=== PATIENT | male | born 1970 | race Caucasian/White ===

== ENCOUNTER 2021-03-29 11:04 | Outpatient (CLI) | payer OTHER, SELFPAY ==
--- NOTE | ~2021-03-29 | US_ITS ---
EXAMINATION: US thyroid EXAM DATE: 03/29/2021 11:34 INDICATION: Goiter. TECHNIQUE: Multiple grayscale and Doppler images of the thyroid were obtained (by a technologist who performed the scan) and subsequently reviewed. Individual nodules and recommendations may be reporte d in accordance with TI-RADS system as designated by the 2017 ACR White Paper TI-RADS committee. The re is no prior study for comparison. FINDINGS: The right there are lobe measures 5.5 x 2.5 x 1.6 cm, the left measuring 5.6 x 2.2 x 1.8 cm. Mildly d iffusely heterogeneous thyroid echogenicity with expected amount of vascularity. There are several thyroid nodules identified, largest in the right thyroid lobe midpole measuring 1.2 x 1.6 x 1.4 cm, solid (2 points), hypoechoic (2 points), taller than wide (3 points), smooth well de fined margin, without echogenic foci, category TR4 for this nodule. The others are subcentimeter. IMPRESSION: Multinodular goiter; Ultrasound-guided biopsy recommended for largest right thyroid lobe nodule. Reviewed, dictated and finalized at location B. IMPRESSION: Multinodular goiter; Ultrasound-guided biopsy recommended for large st right thyroid lobe nodule.
== END 2021-03-29 11:05 | disposition home or self-care (01) ==
LOC: ANHIMG 11:10
PROVIDERS: PCP Nurse Practitioner; Visit Provider Internal Medicine Endocrinology, Diabetes & Metabolism
DX: E04.9 Nontoxic goiter, unspecified (principal); R11.2 Nausea with vomiting, unspecified
CPT/HCPCS: 76536

== ENCOUNTER 2021-05-11 09:51 | Outpatient (CLI) | payer OTHER, SELFPAY ==
--- NOTE | ~2021-05-11 | NM_ITS ---
EXAM: NM gastric emptying study DATE: 05/11/2021 14:34 INDICATION: Nausea and vomiting TECHNIQUE: A gastric emptying study was performed using the methodology of Glory TANG, et al. J Nucl Med 2007; 48:568-572. The patient was given a meal consisting of 2 scrambled eggs labeled with 0.985 mCi Tc-99m sulfur colloid, 2 slices of toast, two packages of jam, and approximately 120 mL of water . Simultaneous anterior and posterior 1-min images of the abdomen were obtained with the patient supi ne at multiple time points over a total period of 4 hours. The geometric mean of anterior and posteri or views was determined, and the percentage retention was calculated for each time point. COMPARISON: None. FINDINGS: Gastric retention of the radiotracer-labeled meal was 49%, 23%, and 3% at the 1-hour, 2-hour, and 4-h our time points, respectively. With this technique, apparent rapid gastric emptying is suggested by < 30% gastric retention at 1 hour. Delayed gastric emptying is defined by gastric retention of >90% at 1 hour, >60% retention at 2 hours, or >10% retention at 4 hours. IMPRESSION: 1. Normal gastric emptying. Reviewed, dictated and finalized at location A. IMPRESSION: 1. Normal gastric emptying.
== END 2021-05-11 09:52 | disposition home or self-care (01) ==
PROVIDERS: PCP Nurse Practitioner; Visit Provider Internal Medicine Endocrinology, Diabetes & Metabolism
DX: R11.2 Nausea with vomiting, unspecified (principal)
CPT/HCPCS: 78264; A9541

== ENCOUNTER 2021-07-19 09:25 | Outpatient (CLI) | payer OTHER, SELFPAY ==
--- NOTE | ~2021-07-19 | US_ITS ---
EXAMINATION: US FNA w image guidance DATE: 07/19/2021 10:44 INDICATION: Right thyroid nodule. TECHNIQUE: The procedure and its benefits and risks were discussed with the patient. Risks specifically discusse d included bleeding. The patient verbalized understanding of the risks and agreed to proceed. The nec k was prepped and draped in the usual sterile manner. 1% lidocaine was used for local anesthesia. 5 passes were made with a 25G needle into the lesion under ultrasound guidance. There were no immedia te complications. The patient understood to call the ordering physician for results after a week and a half and verbalized that understanding. FINDINGS: Grayscale ultrasound images demonstrate needles advanced into a 1.7 cm nodule in right thyroid lobe f or biopsy. IMPRESSION: 1. Ultrasound-guided fine needle aspiration of a right thyroid nodule. Reviewed, dictated and finalized at location A.
== END 2021-07-19 09:26 | disposition home or self-care (01) ==
LOC: ANHIMG 09:27
PROVIDERS: PCP Nurse Practitioner; Visit Provider Internal Medicine Endocrinology, Diabetes & Metabolism
DX: E04.1 Nontoxic single thyroid nodule (principal)
CPT/HCPCS: 10005; 88173; 88305

== ENCOUNTER 2022-01-31 15:09 | Outpatient (CLI) | payer OTHER, SELFPAY ==
--- NOTE | ~2022-01-31 | US_ITS ---
EXAMINATION: US thyroid DATE: 01/31/2022 16:05 INDICATION: Thyroid nodule TECHNIQUE: Multiple ultrasound images of the thyroid were obtained. COMPARISON: 03/29/2021 FINDINGS: The right thyroid lobe measures 5.1 x 2.3 x 1.8 cm. The left thyroid lobe measures 4.9 x 2.1 x 1.4 c m. No significant interval change in a 1.6 cm taller than wide hypoechoic solid TI-RADS 4 right thyr oid nodule with biopsy on 07/19/2021 demonstrating pathology consistent with benign follicular nodule with features of colloid cyst. Also without significant interval change is a 5 mm solid hypoechoic nodules in the left thyroid lobe IMPRESSION: 1. Stable appearance of a multinodular goiter. Reviewed, dictated and finalized at location A. [employer]
== END 2022-01-31 15:10 | disposition home or self-care (01) ==
LOC: ANHIMG 15:11
PROVIDERS: PCP Nurse Practitioner; Visit Provider Internal Medicine Endocrinology, Diabetes & Metabolism
DX: E04.2 Nontoxic multinodular goiter (principal)
CPT/HCPCS: 76536

== ENCOUNTER 2022-09-03 14:50 | Observation (INO) | payer OTHER, SELFPAY ==
--- NOTE | ~2022-09-03 | CT_ITS ---
EXAMINATION: CT abdomen pelvis w con DATE: 09/03/2022 17:39 INDICATION: abd pain TECHNIQUE: Computed tomography (CT) of the abdomen and pelvis was performed with 100 mL Omnipaque-350 intravenous contrast. Automated exposure control and iterative reconstruction technique were employe d. The dose-length product was 1315.30 mGy-cm. COMPARISON: None. FINDINGS: Lower thorax: Coronary artery calcification and possible stents. Liver: Enlarged. Diffuse fatty infiltration. Biliary/Gallbladder: Gallbladder is absent. No bile duct dilation. Pancreas: No mass or duct dilation. Spleen: Normal. Adrenals:No mass. Kidneys: No mass, stone, or hydronephrosis. GI tract: No small or large bowel dilation. Normal appendix. Diverticulosis without diverticulitis. Mesentery/Peritoneum: No ascites, mass, or free air. Retroperitoneum: No mass. Pelvis: Bladder wall thickening, otherwise the pelvic organs are within normal limits. Soft Tissues: Bilateral fat-containing inguinal hernias, with minimal herniation of the right side of the urinary bladder at the entrance of the right inguinal hernia. Small fat-containing umbilical her ileana. Dermal thickening with subcutaneous fat stranding involving the lower abdomen and extending over the bilateral hips and buttocks. Bones: No acute osseous finding. IMPRESSION: Hepatomegaly. Steatosis. Bladder wall thickening, possibly due to bladder outlet compromise, noting t hat cystitis would appear similar. Dermal thickening with subcutaneous edema/inflammation of the lowe r abdomen and pelvis of uncertain significance, correlate with physical exam. Reviewed, dictated and finalized at location K. IMPRESSION: Hepatomegaly. Steatosis. Bladder wall thickening, possibly due to bladder outle t compromise, noting that cystitis would appear similar. Dermal thickening with subcutaneous edema/inflammation of the lower abdomen and pelvis of uncertain s ignificance, correlate with physical exam.
[2022-09-03 15:11] VITALS: BP 114/65; PULSE 104; RESP 15; TEMP 36.7; O2SAT 98
[2022-09-03 15:33] LABS: Basophils Percent Auto 0.3 % (0.2-1.2); Eosinophils Absolute Auto 0.6 K/mm3 (0-0.3); Eosinophils Percent Auto 3.6 % (0-4.4); Hematocrit 49.4 % (42.0-52.0); Hemoglobin 16.1 g/dL (14.0-18.0); Immature Granulocyte Absolute 0.11 K/mm3 (0.00-0.031); Immature Granulocyte Percent A 0.7 % (0-0.5); Lymphocytes Absolute Auto 3.69 K/mm3 (0.9-3.2); Lymphocytes Percent Auto 23.5 % (18.3-44.2); Mean Corpuscular HGB Conc 32.6 g/dl (32-36); Mean Corpuscular Hemoglobin 29.2 pg (26-34); Mean Corpuscular Volume 89.7 fl (80-100); Mean Platelet Volume 9.3 fl (7.4-10.4); Monocytes Absolute Auto 0.9 K/mm3 (0.1-0.6); Monocytes Percent Auto 5.4 % (2.6-8.5); Neutrophils Absolute Auto 10.5 K/mm3 (1.3-6.7); Neutrophils Percent Auto 66.5 % (45.5-73.1); Platelet Count Result 325 k/mm3 (150-375); Red Blood Count 5.51 M/mm3 (4.6-6.20); Red Cell Distribution Width 14.6 % (11.5-14.5); White Blood Count 15.7 K/mm3 (4.5-10.0)
[2022-09-03 15:41] LABS: Add Urine Microscopic? YES; Appearance Urine Clear (Clear); Bilirubin Urine Negative (Negative); Blood Urine Negative (Negative); Color Urine Yellow (Yellow); Glucose Urine UA 3+ mg/dL (Negative); Ketones Urine Negative (Negative); Leukocyte Esterase Ur Negative LEU/UL (Negative); Mucus Urine Rare /lpf; Nitrate Urine Negative (Negative); Protein Urine Negative (Negative); RBC Urine 0-2 /hpf (0-2); Specific Grav Ur 1.029 (1.001-1.035); Squamous Epithelial Cell Urine Rare /hpf (Few); Urobilinogen Urine Negative mg/dL (<2.0); WBC Urine 0-3 /hpf
[2022-09-03 15:43] LABS: Alanine Aminotransferase 36 U/L (6-50); Albumin Level 3.7 g/dL (3.5-5.1); Alkaline Phosphatase 50 U/L (38-126); Anion Gap 12 mmol/L (8-16); Aspartate Amino Transferase 24 U/L (17-59); Bilirubin,Total 0.4 mg/dL (0.2-1.3); Blood Urea Nitrogen 33 mg/dL (9-20); Calcium 8.6 mg/dL (8.4-10.2); Carbon Dioxide 12 mmol/L (22-30); Chloride 108 mmol/L (98-107); Estimated CRCL calculation 55 ml/min; Estimated Glomerular Filt Rate 43; Glucose 309 mg/dL (65-110); Lipase 146 U/L (23-300); Potassium 4.8 mmol/L (3.4-5.0); Sodium 132 mmol/L (137-145)
[2022-09-03] MEDS: SODIUM CHLORIDE 0.9% IV 1,000 ML 999 ML IV CONT ×2 (17:02→17:03)
--- NOTE | 2022-09-03 18:10 | ED.GENADULT ---
HPI - General Adult General Chief complaint: Nausea/Vomiting/Diarrhea Stated complaint: diarrhea x 7 days Time Seen by Provider: 09/03/22 16:49 Source: RN notes reviewed History of Present Illness HPI narrative: Patient presents emergency room from home for diarrhea. Patient states for the past week he has been having numerous episodes of diarrhea and states that has been associated with nausea and vomiting but states that he only vomits rarely and is more nauseous all the time he denies any fevers or chills states he has had some abdominal pain is described as cramping in nature and diffuse he denies having any chest pain or shortness of breath. States he was started on Lyrica recently stopped taking as he thought this may be a side effect of his Lyrica Related Data Allergies Allergy/AdvReac Type Severity Reaction Status Date / Time No Known Allergies Allergy Verified 02/22/15 08:49 Review of Systems Review of Systems: Gen.: Denies fevers or chills ENT: Denies congestion Respiratory: Denies shortness of breath or cough CV: Denies chest pain or palpitations GI: See HPI Musculoskeletal: Denies back pain or muscle pain Neuro: Denies numbness, tingling, weakness or focal weakness Skin: Denies rash Except as documented, all other systems reviewed and negative [facility] Past Medical History Medical History (Updated 09/03/22 @ 18:48 by Adrian Hawthorne DO) Diabetes type 2, uncontrolled Family History Family History (Updated 03/19/16 @ 10:17 by DOCTOR UNKNOWN) Other Diabetes mellitus Family history of arthritis Family history of malignant neoplasm of brain Social History Social History Smoking status: Never smoker Alcohol intake: current Exam Narrative: APPEARANCE: No acute distress, nontoxic, resting in bed HEENT: Normocephalic, atraumatic, OMM RESPIRATORY: No respiratory distress, clear to auscultation bilaterally with no rhonchi wheezing or rales CARDIOVASCULAR: RRR s murmur ABDOMINAL: Soft nondistended diffusely tender to palpation no rebound or guarding MUSCULOSKELETAl: Moves all extremities. No clubbing, cyanosis or edema. NEURO: Awake and alert. Following commands, speech normal, no focal deficits SKIN:: Warm, dry. Normal Color PSYCHIATRIC: Normal affect/mood Course Course Emergency Course: Following CT scan discussed with patient patient states that he does give himself injections in his abdomen there is no signs of erythema or infection Discussed with JIE Zhu for Dr. Neely agrees with admission with continued hydration Discussed with patient and family results of workup and diagnosis. Discussed need for admission. Patient and family understand and agree to current treatment plan Vital Signs Vital signs: Vital Signs Temperature 98.1 F 09/03/22 15:11 Pulse Rate 104 H 09/03/22 15:11 Respiratory Rate 15 09/03/22 15:11 Blood Pressure 114/65 09/03/22 15:11 Pulse Oximetry 98 09/03/22 15:11 Oxygen Delivery Room Air 09/03/22 15:11 Temperature 98.1 F 09/03/22 15:11 Pulse Rate 104 H 09/03/22 15:11 Respiratory Rate 15 09/03/22 15:11 Blood Pressure 114/65 09/03/22 15:11 Pulse Oximetry 98 09/03/22 15:11 Oxygen Delivery Room Air 09/03/22 15:11 Medical Decision Making Vital Signs Vital Signs: Vital Signs Temperature 98.1 F 09/03/22 15:11 Pulse Rate 104 H 09/03/22 15:11 Respiratory Rate 15 09/03/22 15:11 Blood Pressure 114/65 09/03/22 15:11 Pulse Oximetry 98 09/03/22 15:11 Oxygen Delivery Room Air 09/03/22 15:11 Temperature 98.1 F 09/03/22 15:11 Pulse Rate 104 H 09/03/22 15:11 Respiratory Rate 15 09/03/22 15:11 Blood Pressure 114/65 09/03/22 15:11 Pulse Oximetry 98 09/03/22 15:11 Oxygen Delivery Room Air 09/03/22 15:11 Lab Data Result diagrams: 09/03/22 15:26 09/03/22 15:26 Labs: Lab Results 09/03/2208/25
[2022-09-03 18:52] LABS: Lactic Acid Reflex 1.5 mmol/L (0.7-2.0)
[2022-09-03 18:56] LABS: Beta-Hydroxybutyrate/Acetoacetate 0.11 mmol/L (0.02-0.27)
[2022-09-03 19:08] LABS: Anion Gap 12 mmol/L (8-16); Blood Urea Nitrogen 32 mg/dL (9-20); Calcium 7.6 mg/dL (8.4-10.2); Carbon Dioxide 15 mmol/L (22-30); Chloride 108 mmol/L (98-107); Estimated CRCL calculation 55 ml/min; Estimated Glomerular Filt Rate 43; Glucose 205 mg/dL (65-110); Potassium 4.3 mmol/L (3.4-5.0); Sodium 135 mmol/L (137-145)
[2022-09-03 19:48] VITALS: BP 139/76; PULSE 99; RESP 16; O2SAT 98
[2022-09-03 20:51] VITALS: BMI 36.9
--- NOTE | 2022-09-03 20:57 | ADMGEN ---
This patient, Adrian Castillo, was admitted to [facility] Surg Room 313-01. Patient/family oriented to hospital policies and general routines including ID bracelet, bed and alarms, visiting hours, pain management, procedures, bathroom and other care routines, personal items, smoking policy, room service/diet, and visiting hours. Information on how to activate the Rapid Response Team has been discussed. Patient/Family are encouraged to report perceived risks to care and to ask questions if they do not understand what they are told or what they should do.
--- NOTE | 2022-09-03 21:18 | PM.IMHP ---
H&P: HPI History of Present Illness Date/Time: 09/03/22 21:18 Chief Complaint: Diarrhea Narrative: This is a 51-year-old male with past medical history significant for type diabetes mellitus, insulin dependent, peripheral diabetic neuropathy, patient is uses skin as an aid for ambulation, restless leg syndrome, dyslipidemia, generalized anxiety disorder, chronic diarrhea. patient presents to the emergency room due to diarrhea for a week patient having any were in between 6-24 bowel movements a day of liquid stool noted that the number of episodes have become less. patient denies any fevers, rigors, chills, cough, sputum production, shortness of breath, hematemesis, phlegm or blood in the stool, no abdominal pain, no lightheadedness, no palpitations, no syncope or near syncope.He had been in to see his primary care physician who ordered some lab work and asked him to present to the emergency room for further evaluation. Preliminary workup was significant for [place] WBC 63041, chemistry panel sodium 132, creatinine 1.7. A CT of abdomen and pelvis was reported as: IMPRESSION: Hepatomegaly. Steatosis. Bladder wall thickening, possibly due to bladder outlet compromise, noting that cystitis would appear similar. Dermal thickening with subcutaneous edema/inflammation of the lower abdomen and pelvis of uncertain significance, correlate with physical exam. Review of Systems Review of Systems: diarrhea Constitutional: Constitutional: Denies chills, Denies fever(s), Denies malaise and Denies night sweats Eyes: Eyes: Denies change in vision ENT: Denies dysphagia, Denies vertigo, Denies dizziness and Denies odynophagia Cardiovascular: Cardiovascular: Denies chest pain, Denies syncope, Denies irregular heart rhythm, Denies lightheadedness, Denies radiating jaw, neck or arm pain, Denies palpitations and Denies dyspnea on exertion Respiratory: Respiratory: Denies chest congestion, Denies cough, Denies excessive phlegm production, Denies pain on inspiration and Denies dyspnea on exertion Gastrointestinal: Gastrointestinal: Denies abdominal pain, Denies dyspepsia, Denies heartburn, Reports diarrhea, Denies nausea and Denies vomiting Genitourinary: Genitourinary: Denies dysuria Musculoskeletal: Musculoskeletal: Denies back pain Integumentary/Breasts: Skin/Breast: Denies rash Neurologic: Denies vertigo, Denies focal weakness, Denies Sensory deficit (Neuro) and Reports paresthesias ( Bilateral lower extremity) Psychiatric: Psychiatric: Reports no additional psychiatric complaints and Reports as per HPI Endocrine: Endocrine: Denies cold intolerance, Denies flushing, Denies heat intolerance, Denies polyphagia, Denies polydipsia and Denies palpitations Hematologic/Lymphatic: Hematologic/Lymphatic: Reports no additional hematologic/lymphatic complaints and Reports as per HPI Allergic/Immunologic: Allergic/Immunologic: Reports no additional allergic/immunologic complaints and Reports as per HPI PMFSH Past Medical History Medical History (Updated 09/03/22 @ 18:48 by Adrian Hawthorne DO) Diabetes type 2, uncontrolled Family History Family History Other Diabetes mellitus Family history of arthritis Family history of malignant neoplasm of brain Social History Social History (Updated 09/03/22 @ 20:58 by Xi Akins, RN) Smoking packs per day: 0.5 Smoking cigarettes per day: 10.0 Years smoked: 14 Smoking pack-years: 7.00 Smoking status: Former smoker Additional smoking assessment comments: Quit in 2001 Alcohol intake: never Substance use: never Spiritual care concerns: No Meds Home Medications and Allergies Home Medications Medication Instructions Recorded Confirmed Type aripiprazole 2 mg tablet 2 mg PO 1XD 09/03/22 09/03/22 History atorvastatin 40 mg tablet 40 mg PO 1XD 09/03/22 09/03/22 History bupropion HCl 300 mg 24 hr tablet, 300 mg PO 1XD
[2022-09-03 21:58] VITALS: BP 136/72; PULSE 96; RESP 14; TEMP 36.2; O2SAT 98
[2022-09-03 22:14] VITALS: BP 136/72; PULSE 96; RESP 14; TEMP 36.2
[2022-09-04] MEDS: FAMOTIDINE 20 MG/2 ML VIAL IV PUSH ×3 (00:04→21:03)
[2022-09-04] MEDS: SODIUM CHLORIDE 0.9% IV 1,000 ML 125 ML IV CONT ×3 (00:04→16:31)
[2022-09-04 05:57] VITALS: BP 152/79; PULSE 93; RESP 14; TEMP 36.3; O2SAT 97
[2022-09-04 06:42] LABS: Basophils Percent Auto 0.3 % (0.2-1.2); Eosinophils Absolute Auto 0.7 K/mm3 (0-0.3); Eosinophils Percent Auto 6.1 % (0-4.4); Hematocrit 42.7 % (42.0-52.0); Hemoglobin 14.2 g/dL (14.0-18.0); Immature Granulocyte Absolute 0.08 K/mm3 (0.00-0.031); Immature Granulocyte Percent A 0.7 % (0-0.5); Lymphocytes Absolute Auto 4.09 K/mm3 (0.9-3.2); Lymphocytes Percent Auto 33.5 % (18.3-44.2); Mean Corpuscular HGB Conc 33.3 g/dl (32-36); Mean Corpuscular Hemoglobin 28.9 pg (26-34); Mean Platelet Volume 9.6 fl (7.4-10.4); Monocytes Percent Auto 8.2 % (2.6-8.5); Neutrophils Absolute Auto 6.3 K/mm3 (1.3-6.7); Neutrophils Percent Auto 51.2 % (45.5-73.1); Platelet Count Result 271 k/mm3 (150-375); Red Blood Count 4.91 M/mm3 (4.6-6.20); Red Cell Distribution Width 14.6 % (11.5-14.5); White Blood Count 12.2 K/mm3 (4.5-10.0)
[2022-09-04 06:54] LABS: Alanine Aminotransferase 30 U/L (6-50); Albumin Level 3.5 g/dL (3.5-5.1); Alkaline Phosphatase 46 U/L (38-126); Anion Gap 13 mmol/L (8-16); Aspartate Amino Transferase 19 U/L (17-59); Bilirubin,Total 0.3 mg/dL (0.2-1.3); Blood Urea Nitrogen 23 mg/dL (9-20); Calcium 8.4 mg/dL (8.4-10.2); Carbon Dioxide 18 mmol/L (22-30); Chloride 108 mmol/L (98-107); Estimated CRCL calculation 67 ml/min; Estimated Glomerular Filt Rate 53; Glucose 142 mg/dL (65-110); Potassium 3.9 mmol/L (3.4-5.0); Sodium 139 mmol/L (137-145)
[2022-09-04 07:37] LABS: Glucose Point of Care 131 mg/dl (65-105)
[2022-09-04 07:58] VITALS: O2SAT 99
[2022-09-04] MEDS: buPROPion HCL XL (24 HR) 150 MG TABCR 300 MG PO (09:06)
[2022-09-04] MEDS: ARIPiprazole 2 MG TABLET PO (09:06)
[2022-09-04] MEDS: DICLOFENAC SOD 75 MG TABLET.EC PO ×2 (09:06→16:29)
[2022-09-04] MEDS: FENOFIBRATE 160 MG TABLET PO (09:07)
[2022-09-04] MEDS: busPIRone HCL 10 MG TABLET 30 MG PO ×3 (09:07→16:29)
[2022-09-04] MEDS: HEPARIN SODIUM 5,000 UNITS/ML VIAL 5000 UNITS SUB-Q ×2 (09:07→21:03)
[2022-09-04] MEDS: PANTOPRAZOLE 40 MG TABLET PO (09:07)
[2022-09-04] MEDS: INSULIN ASPART (*BKC) 100 UNITS/ML 38 UNITS SUB-Q ×3 (09:12→16:45)
[2022-09-04] MEDS: INSULIN GLARGINE (*BKC) 100 UNITS/ML 55 UNITS SUB-Q (09:13)
--- NOTE | 2022-09-04 10:27 | PM.IMPN ---
Progress Note: A&P Assessment and Plan (1) Diarrhea: Code(s): R19.7 - Diarrhea, unspecified Status: Acute Assessment and Plan: admit to regular medical floor supportive care stool studies in progress (2) Acute dehydration: Code(s): E86.0 - Dehydration Status: Acute Assessment and Plan: push per orally patient received IV fluids monitor intake and output daily (3) Acute renal insufficiency: Code(s): N28.9 - Disorder of kidney and ureter, unspecified Status: Acute Assessment and Plan: likely to be pre renal azotemia repeat BMP in a.m. renal ultrasound in a.m. holding lisinopril holding in HCTZ (4) Diabetes type 2, uncontrolled: Status: Acute Assessment and Plan: Accu-Cheks AC and HS continue Lantus insulin continues postprandial insulin coverage holding metformin holding Victoza holding Saman Subjective Date/time seen: 09/04/22 10:27 no complaints, still having loose stools Exam Const: General: comfortable, no acute distress, well developed, alert, awake and average body habitus Nutritional Appearance: average body habitus Orientation/consciousness: patient oriented x3 HENMT: Head: normal to inspection, normocephalic and atraumatic Ears: hearing grossly normal bilaterally Face/Nose/Sinus: normal facial exam Face and sinus: normal facial exam Eyes: General: appearance normal, both eyes and all related structures Pupils: Equal, round and reactive pupils present EOM: EOMs intact bilaterally Neck: Neck: full ROM, no lymphadenopathy and no JVD Thyroid: thyroid normal Lymphatic: no lymphadenopathy noted Resp: Effort & Inspection: normal respiratory effort and able to speak in complete sentences Auscultation: clear to auscultation bilaterally Cardio: Jugular venous distension: no JVD Rate: regular rate Rhythm: regular rhythm Heart sounds: S1 normal heart sound present and S2 normal heart sound present GI: Inspection: Pannus present and obesity : General: Yes deferred Skin: Rashes: no rashes Wounds: no wounds Neuro: General: patient oriented x3, CN's II-XI intact bilaterally and Unable to assess gait Cranial nerves: Yes CN's II-XII intact bilaterally and Yes Equal, round and reactive pupils present Cognition (Neuro): normal cognition Speech: normal speech Gait exam (Neuro): Normal gait present and Unable to assess gait Motor exam (neuro): 5/5 motor strength present throughout Sensory Exam: No Sensory deficit (Neuro) Other: patient uses cane as an aid for ambulation Extrem: General: normal to inspection, full ROM, no joint enlargement and no pedal edema Objective Data Vital Signs Vital Signs: Vital Signs - 24 hr 09/03/22 15:11 09/03/22 19:48 09/03/22 21:58 Temperature 98.1 F 97.1 F L Pulse Rate 104 H 99 96 Respiratory Rate 15 16 14 Blood Pressure 114/65 139/76 136/72 Pulse Oximetry 98 98 98 Oxygen Delivery Room Air 09/04/22 05:57 09/04/22 07:58 09/04/22 08:00 Temperature 97.3 F L Pulse Rate 93 Respiratory Rate 14 Blood Pressure 152/79 H Pulse Oximetry 97 99 Oxygen Delivery Room Air Room Air 09/03/22 22:14 Temperature 97.1 F L Pulse Rate 96 Respiratory Rate 14 Blood Pressure 136/72 Pulse Oximetry Oxygen Delivery Intake/Output Intake/Output: Intake & Output 09/01/22 09/02/22 09/03/22 09/04/22 23:59 23:59 23:59 23:59 Intake Total 1999 2390 Output Total 1800 Balance 1999 590 Meds/Results Medications: Active Medications Generic Name Dose Route Start Last Admin Trade Name Freq PRN Reason Stop Dose Admin Aripiprazole 2 mg 09/04/22 09:00 09/04/22 09:06 Aripiprazole 2 Mg Tablet PO 2 mg DAILY [facility] Administration Atorvastatin Calcium 40 mg 09/04/22 14:00 Atorvastatin 40 Mg Tablet PO DAILY@1400 [facility] Bupropion HCl 300 mg 09/04/22 09:00 09/04/22 09:06 Bupropion Hcl Xl (24 Hr) 150 Mg Tabcr PO 300 mg DAILY AUDELIA Adm
[2022-09-04 11:01] LABS: Toxigenic C. Diff NEGATIVE (NEGATIVE)
[2022-09-04 12:37] LABS: Glucose Point of Care 213 mg/dl (65-105)
[2022-09-04] MEDS: ATORVASTATIN 40 MG TABLET PO (12:40)
[2022-09-04 14:00] VITALS: BP 153/76; PULSE 97; RESP 15; TEMP 35.9; O2SAT 98
[2022-09-04 16:39] LABS: Glucose Point of Care 107 mg/dl (65-105)
[2022-09-04 20:57] LABS: Glucose Point of Care 63 mg/dl (65-105)
[2022-09-04] MEDS: traZODone HCL 50 MG TABLET 200 MG PO (21:03)
[2022-09-04] MEDS: LORazepam (*CRX) 0.5 MG TABLET PO (21:03)
[2022-09-04 21:50] VITALS: BP 157/82; PULSE 86; RESP 16; TEMP 36.8; O2SAT 100
[2022-09-05] MEDS: SODIUM CHLORIDE 0.9% IV 1,000 ML 125 ML IV CONT ×2 (00:39→08:47)
[2022-09-05 06:00] VITALS: BP 163/94; PULSE 86; RESP 16; TEMP 36.8; O2SAT 100
[2022-09-05 08:27] LABS: Glucose Point of Care 122 mg/dl (65-105)
[2022-09-05] MEDS: busPIRone HCL 10 MG TABLET 30 MG PO ×3 (08:48→17:02)
[2022-09-05] MEDS: buPROPion HCL XL (24 HR) 150 MG TABCR 300 MG PO (08:48)
[2022-09-05] MEDS: DICLOFENAC SOD 75 MG TABLET.EC PO ×2 (08:48→17:03)
[2022-09-05] MEDS: HEPARIN SODIUM 5,000 UNITS/ML VIAL 5000 UNITS SUB-Q (08:48)
[2022-09-05] MEDS: FENOFIBRATE 160 MG TABLET PO (08:48)
[2022-09-05] MEDS: PANTOPRAZOLE 40 MG TABLET PO (08:48)
[2022-09-05] MEDS: ARIPiprazole 2 MG TABLET PO (08:48)
[2022-09-05] MEDS: FAMOTIDINE 20 MG/2 ML VIAL IV PUSH (08:48)
[2022-09-05] MEDS: INSULIN ASPART (*BKC) 100 UNITS/ML 38 UNITS SUB-Q ×2 (08:49→11:59)
[2022-09-05] MEDS: INSULIN GLARGINE (*BKC) 100 UNITS/ML 55 UNITS SUB-Q (08:53)
[2022-09-05 11:45] LABS: Glucose Point of Care 169 mg/dl (65-105)
[2022-09-05] MEDS: ATORVASTATIN 40 MG TABLET PO (13:55)
[2022-09-05 14:00] VITALS: BP 152/83; PULSE 87; RESP 18; TEMP 35.9; O2SAT 100
[2022-09-05 16:46] LABS: Glucose Point of Care 65 mg/dl (65-105)
[2022-09-05 16:46] LABS: Glucose Point of Care 58 mg/dl (65-105)
--- NOTE | 2022-09-05 17:13 | PM.DS ---
DS: Admitting Diagnosis Discharge Date 09/05/22 Admitting Diagnosis Diarrhea DS: Discharge Diagnosis Discharge Diagnosis (1) Diarrhea: Code(s): R19.7 - Diarrhea, unspecified Status: Acute (2) Acute dehydration: Code(s): E86.0 - Dehydration Status: Acute (3) Acute renal insufficiency: Code(s): N28.9 - Disorder of kidney and ureter, unspecified Status: Acute (4) Diabetes type 2, uncontrolled: Status: Acute DS: Summary Hospital Course Reason for hospitalization: 51yo male with HTN and DM here for diarrhea. Please see H&P for details Hospital Course: Patient presents emergency room with complaints of diarrhea. He has too numerous to count stools associated with nausea and vomiting. He was having crampy abdominal pain. He was recently started on Lyrica but he stop this believing this was the cause of his symptoms. CT scan shows hepatomegaly and steatosis. He also had bladder wall thickening possibly due to bladder outlet obstruction. Urinalysis was clear except for glucose of 3+. He does have dermal thickening in the lower abdomen, bilateral hips and buttocks. Etiology unclear. Insulin injections could be contributing to this finding. Nothing on clinical exam to suggest cellulitis. White count was elevated at 15 K but this trended downward on no antibiotics. He did have a non gap metabolic acidosis by related to the kidney failure and the diarrhea. Sodium was slightly low 132 but this normalized with fluids. His serum bicarb increased to 18. His BUN was 33 and creatinine 1.7 but with IV fluids trended upward to BUN 23 and creatinine 1 4. LFTs within normal limits. Lipase was normal. Beta hydroxybutyrate level was normal. stool studies thus far negative including C diff. Patient's diarrhea improved. He is only having 1 soft stool a day. He feels ready for discharge. Overall did well and was discharged home on 09/05/2022. Status at Discharge Cognitive/behavioral status at discharge: Stable Time Spent with Patient Time attestation: Total time spent providing and/or coordinating discharge services: 32 minutes Time spent: Greater than 30 minutes Exam Narrative: AF 96.6 152/83 87 18 100% ra Gen - NARD Chest - CTA bilaterally, nml RR CV - RRR S1/S2 Abd - Soft, NT/ND, Positive BS Ext - No pedal edema Neuro - Alert and oriented. Nonfocal exam. Psych - Nml mood and affect Skin - Warm and dry DS: Data Data Completed and Pending Labs on day of discharge: Labs from last 24 hours 09/05/22 09/05/22 09/05/22 16:42 16:28 11:41 POC Capillary Glucose 65 58 L* 169 H 09/05/22 09/04/22 08:22 20:55 POC Capillary Glucose 122 H 63 L Discharge Plan Discharge Attending physician on discharge: Sumeet Stephenson Discharging Clinician: Sumeet Stephenson Anticipated Discharge Date/Time: 09/05/22 17:22 Patient Disposition: Home, Self-Care Activity: as tolerated Diet: diabetic Discharge Instructions: Please check glucose before meals and before bed. Record and bring into your doctor for review. Please stay well hydrated. Contact your doctor or call 911 and come to the Emergency Room if you have fevers, difficulty urinating, worsening diarrhea, bloody stools or other worrisome symptoms. Follow-up with your doctor in 1-2 weeks. Please call for appointment. Thank you for using [facility] for your health care needs. Patient Instructions: Antibiotic Form Stand Alone Forms: General Discharge Information Follow-up/Referrals: Harsh,Huy Manjarrez APRN [Primary Care Provider] - Call for Appointment Discharge Medications: Continued atorvastatin 40 mg tablet 40 mg PO 1XD cyproheptadine 4 mg tablet 0.5 - 1 mg PO DAILY PRN (Reason: Allergy Symptoms) lorazepam 0.5 mg tablet 0.5 mg PO HS trazodone 100 mg tablet 100 - 200 mg PO HS buspirone 30 mg tablet 30 mg PO 3XD
[2022-09-09 19:01] LABS: Norovirus RNA PCR, Stool NOT DETECTED
--- NOTE | 2022-09-10 10:33 | PC.NURSE ---
Norovirus is negative. Dr. Sachin ndiaye.
--- NOTE | 2022-09-17 12:21 | PC.NURSE ---
Stool for Ova and Parasites is negative. Dr. Sachin ndiaye.
== END 2022-09-05 18:00 | disposition home or self-care (01) ==
LOC: ANHED 18:48 → ANH3MEDSUR 19:50
PROVIDERS: Internal Medicine; Admitting Provider Internal Medicine; Emergency Provider Emergency Medicine; PCP Nurse Practitioner; Visit Provider Internal Medicine
DX: R19.7 Diarrhea, unspecified (principal); E86.0 Dehydration; N28.9 Disorder of kidney and ureter, unspecified; E11.65 Type 2 diabetes mellitus with hyperglycemia; E11.42 Type 2 diabetes mellitus with diabetic polyneuropathy; R11.2 Nausea with vomiting, unspecified; R10.9 Unspecified abdominal pain; R16.0 Hepatomegaly, not elsewhere classified; K76.0 Fatty (change of) liver, not elsewhere classified; R93.41 Abnormal radiologic findings on diagnostic imaging of renal pelvis, ureter, or bladder; G25.81 Restless legs syndrome; E78.5 Hyperlipidemia, unspecified; F41.9 Anxiety disorder, unspecified; E66.9 Obesity, unspecified; Z68.37 Body mass index [BMI] 37.0-37.9, adult; Z87.891 Personal history of nicotine dependence; F10.90 Alcohol use, unspecified, uncomplicated; Z79.4 Long term (current) use of insulin; Z79.84 Long term (current) use of oral hypoglycemic drugs; Z79.899 Other long term (current) drug therapy; Z83.3 Family history of diabetes mellitus
CPT/HCPCS: 36415; 74177; 80048; 80053; 81001; 82010; 82948; 83605; 83690; 85025; 87045; 87177; 87209; 87269; 87272; 87427; 87493; 87798; 89055; 96360; 96361; 96372; 96374; 96376; 99285; A9270; G0378; G0379; J1644; J1815; J7030; Q9967

== ENCOUNTER 2023-11-22 15:07 | Outpatient (CLI) | payer OTHER, SELFPAY ==
--- NOTE | ~2023-11-22 | US_ITS ---
US thyroid INDICATION: Thyroid nodule TECHNIQUE: Real-time sonographic images of the thyroid gland were obtained. COMPARISON: 01/31/2022 and 03/29/2021 FINDINGS: The right thyroid lobe measures 5.2 x 2.3 x 2 cm. The left thyroid lobe measures 4.9 x 2 x 2 cm. There is normal echotexture and echogenicity throughout the thyroid gland. There is an enlargi ng hypoechoic solid mass which is wider than tall measuring 2.1 x 1.5 x 1.5 cm with irregular margins and no internal echogenic foci, TR 4. Normal vascular flow is present. IMPRESSION: 1. Enlarging 2.1 cm right thyroid mass, TR 4. Ultrasound-guided fine-needle aspiration biopsy recomm ended. Reviewed, dictated and finalized at location A. [employer] IMPRESSION: 1. Enlarging 2.1 cm right thyroid mass, TR 4. Ultrasound-guided fine-needle as piration biopsy recommended.
== END 2023-11-22 15:08 | disposition home or self-care (01) ==
PROVIDERS: PCP Nurse Practitioner; Visit Provider Nurse Practitioner
DX: E04.1 Nontoxic single thyroid nodule (principal)
CPT/HCPCS: 76536

== ENCOUNTER 2024-01-16 12:50 | Outpatient (CLI) | payer OTHER, SELFPAY ==
--- NOTE | ~2024-01-16 | US_ITS ---
EXAMINATION: US FNA w image guidance DATE: 01/16/2024 14:06 INDICATION: Right thyroid nodule TECHNIQUE: A time-out was performed to verify the patient's name, date of , and procedure to be performed . The procedure and its benefits and risks were discussed with the patient. Risks specifically discus sed included bleeding and infection. The patient understood the risks and agreed to proceed. The neck was prepped and draped in the usual sterile manner. 6 mL 1% lidocaine was used for local anesthesia . 7 passes were made with a 25G needle into the lesion. Appropriate needle location was documented with continuous sonographic guidance. A sterile bandage was applied. There were no immediate compli cations. FINDINGS: Grayscale ultrasound images demonstrate biopsy needles advanced into a 2.3 cm TI RADS 4 solid hypoech oic nodule at the deep inferior right thyroid. IMPRESSION: 1. Successful ultrasound-guided fine needle aspiration of a 2.3 cm TI RADS 4 right thyroid nodule of concern.. Reviewed, dictated and finalized at location A. STRATION OFFICER IMPRESSION: 1. Successful ultrasound-guided fine needle aspiration of a 2.3 cm TI RADS 4 r ight thyroid nodule of concern..
== END 2024-01-16 12:51 | disposition home or self-care (01) ==
PROVIDERS: PCP Nurse Practitioner; Visit Provider Nurse Practitioner
DX: E04.1 Nontoxic single thyroid nodule (principal)
CPT/HCPCS: 10005; 88172; 88173; 88305

== ENCOUNTER 2025-11-08 09:54 | Emergency (ER) | payer MEDICARE, MEDICAID, SELFPAY ==
--- NOTE | ~2025-11-08 | XR_ITS ---
EXAM/PROCEDURE: XR lumbar spine 2-3V HISTORY: LT SIDED LBP x2 WKS COMPARISON: None available. TECHNIQUE: 3 view lumbar series FINDINGS: No acute or aggressive bony or soft tissue process seen. Bulky bridging anterior spondylosis throughout the visualized spine. Mild degenerative disc changes. There are also degenerative sclerotic appearing changes in the lower levels involving the posterior elements. Surgical clips right upper quadrant. Fine bone and soft tissue detail somewhat obscured by overlying stool and bowel gas. IMPRESSION: 1. Multilevel degenerative changes involving disc spaces and posterior elements; anterior bridging spondylosis can be seen with DISH; diffuse idiopathic skeletal hyperostosis. 2. Other findings as above. Consider lumbar spine MRI for persisting back pain refractory to conservative therapy. Reviewed, dictated and finalized at location A. IC WORKS INSPECTOR IMPRESSION: 1. Multilevel degenerative changes involving disc spaces and posterior elements ; anterior bridging spondylosis can be seen with DISH; diffuse idiopathic skele cindy hyperostosis. 2. Other findings as above. Consider lumbar spine MRI for persisting back pain refractory to conservative t herapy.
[2025-11-08 10:28] VITALS: BP 135/66; PULSE 88; RESP 15; O2SAT 98
--- NOTE | 2025-11-08 11:23 | ED.BACK ---
HPI - Back Pain/Injury General Chief Complaint: Back Pain/Injury Stated Complaint: back pain Time Seen by Provider: 11/08/25 11:03 History of Present Illness HPI Narrative: 55-year-old male presents to the ER complaining of lower back pain. Denies any injury or trauma. States pain has been present for 2 weeks. Denies radiating pain, saddle anesthesia, lower extremity weakness, bowel or bladder deficits, recent fever. Has been taking ibuprofen with temporary improvement of symptoms. Related Data Home Medications ?Medication ?Instructions ?Recorded ?Confirmed ?Last Taken ?Type aripiprazole 2 mg tablet 2 mg PO 1XD 09/03/22 04/27/25 09/03/22 08:00 History atorvastatin 40 mg tablet 40 mg PO 1XD 09/03/22 04/27/25 09/03/22 14:00 History bupropion HCl 300 mg 24 hr tablet, 300 mg PO 1XD 09/03/22 04/27/25 09/03/22 08:00 History extended release buspirone 30 mg tablet 30 mg PO 3XD 09/03/22 04/27/25 09/03/22 08:00 History empagliflozin 25 mg tablet 25 mg PO 1XD 09/03/22 04/27/25 09/03/22 08:00 History (Jardiance) insulin glargine 100 unit/mL (3 55 unit subcut 1XD 09/03/22 04/27/25 09/03/22 08:00 History mL) subcutaneous pen (Lantus Solostar U-100 Insulin) insulin lispro 100 unit/mL 38 unit subcut 3XD 09/03/22 04/27/25 09/03/22 08:00 History subcutaneous pen lorazepam 0.5 mg tablet 0.5 mg PO HS 09/03/22 04/27/25 09/02/22 21:00 History metformin 1,000 mg tablet 1,000 mg PO 2XD 09/03/22 04/27/25 09/03/22 08:00 History tadalafil 20 mg tablet 20 mg PO PRN PRN Erectile 09/03/22 04/27/25 Unknown History Dysfunction trazodone 100 mg tablet 100 - 200 mg PO HS 09/03/22 04/27/25 09/02/22 21:00 History bupropion HCl 150 mg tablet,12 hr 150 mg PO DAILY 09/28/22 04/27/25 Unknown History sustained-release hydroxyzine HCl 10 mg tablet 10 mg PO ONCE 01/20/25 04/27/25 Unknown History semaglutide 0.25 mg or 0.5 mg (2 0.25 mg subcut WEEKLY 01/20/25 04/27/25 Unknown History mg/3 mL) subcutaneous pen injector (AdvanDx) metoprolol succinate 50 mg 50 mg PO DAILY 04/20/25 04/27/25 Unknown History tablet,extended release 24 hr valsartan 160 mg capsule 160 mg PO DAILY 04/20/25 04/27/25 Unknown History Allergies Allergy/AdvReac Type Severity Reaction Status Date / Time No Known Allergies Allergy Verified 10/27/25 13:41 [facility] Past Medical History Medical History Gas bloat syndrome GERD (gastroesophageal reflux disease) Elevated liver enzymes Hepatic steatosis Hypertension Obese Diabetes type 2, uncontrolled Surgical History Surgical History History of radiofrequency ablation (RFA) of nerve of cervical spine Family History Family History Other Diabetes mellitus Family history of arthritis Family history of malignant neoplasm of brain Social History Social History Smoking packs per day: 0.5 Smoking cigarettes per day: 10.0 Years smoked: 14 Smoking pack-years: 7.00 Smoking status: Former smoker Additional smoking assessment comments: Quit in 2001 Alcohol intake: never Substance use: never Spiritual care concerns: No Exam Const: General: healthy appearing, no acute distress and alert Nutritional Appearance: well nourished and obese Orientation/consciousness: patient oriented x3 Resp: Effort & Inspection: normal respiratory effort Auscultation: clear to auscultation bilaterally Cardio: Rate: regular rate Rhythm: regular rhythm Back/Spine/Pelvis: Back: no CVA tenderness Other: TTP to paravertebral lumbar muscles, no midline tenderness or step-offs. Skin: General skin exam: normal color Rashes: no rashes Neuro: General: patient oriented x3, moves all extremities and CN's II-XI intact bilaterally Extrem: General: normal to inspection Psych: Mental Status: mental status grossly normal Course Vital Signs Vital signs: Vital Signs Pulse Rate 88 11/08/25 10:28 Respiratory Rate 15 11/08/25 10:28 Blood Pressure 135/66 11/08/25 10:28 Pulse Oximetry 98 11/08/25 10:28 Oxygen Delivery Room Air 11/08/25 10:28 Pulse Rate 88 11/08/25 10:28 Respiratory Rate 15 11/08/25 10:28 Blood Pressure 135/66 11/08/25 10:28 Pulse Oximetry 98 11/08/25 10:28 Oxygen Delivery Room Air 11/08/25 10:28 MDM MDM Narrative Medical decision making narrative: In summary: The 5 year male presents ER complaining of low back pain gradually got worse over the past couple of weeks. No red flags on exam. Imaging of the lumbar spine shows degenerative changes. Plan is to discharge patient home with follow-up to his pain management. Differential Diagnosis Differential Diagnosis: Lumbar strain, stenosis, degenerative disc disease, return for Imaging Data Radiologist's impression: ITS Impressions Lumbar Spine X-Ray 11/08/25 11:42 IMPRESSION: 1. Multilevel degenerative changes involving disc spaces and posterior elements; anterior bridging spondylosis can be seen with DISH; diffuse idiopathic skeletal hyperostosis. 2. Other findings as above. Consider lumbar spine MRI for persisting back pain refractory to conservative therapy. Discharge Plan Discharge Clinical Impression: Acute lumbar myofascial strain Qualifiers: Encounter type: initial encounter Qualified Code(s): S39.012A - Strain of muscle, fascia and tendon of lower back, initial encounter Patient Disposition: Home Condition: Stable Instructions: Antibiotic Form, Acute Low Back Pain (ED) Patient Language: Italian Prescriptions: New methocarbamol 750 mg tablet 750 mg PO QID Qty: 30 0RF lidocaine 5 % adhesive patch,medicated 1 patch topical DAILY Qty: 30 0RF Rx Instructions: leave on most painful area for up to 12 hrs tramadol 50 mg tablet 50 mg PO Q6H PRN (Reason: pain) Qty: 15 0RF No Action bupropion HCl 150 mg tablet sustained-release 12 hr 150 mg PO DAILY hydroxyzine HCl 10 mg tablet 10 mg PO ONCE Ozempic 0.25 mg or 0.5 mg (2 mg/3 mL) pen injector 0.25 mg subcut WEEKLY Rx Instructions: for 4 weeks omeprazole 40 mg capsule,delayed release(DR/EC) 40 mg PO DAILY 90 Days Qty: 90 3RF valsartan 160 mg capsule 160 mg PO DAILY metoprolol succinate 50 mg tablet extended release 24 hr 50 mg PO DAILY atorvastatin 40 mg tablet 40 mg PO 1XD lorazepam 0.5 mg tablet 0.5 mg PO HS trazodone 100 mg tablet 100 - 200 mg PO HS buspirone 30 mg tablet 30 mg PO 3XD metformin 1,000 mg tablet 1,000 mg PO 2XD insulin lispro 100 unit/mL insulin pen 38 unit SUBCUT 3XD bupropion HCl 300 mg tablet extended release 24 hr 300 mg PO 1XD tadalafil 20 mg tablet 20 mg PO PRN PRN (Reason: Erectile Dysfunction) aripiprazole 2 mg tablet 2 mg PO 1XD insulin glargine [Lantus Solostar U-100 Insulin] 100 unit/mL (3 mL) insulin pen 55 unit SUBCUT 1XD Jardiance 25 mg tablet 25 mg PO 1XD Follow-up/Referrals: Esequiel Reyes MD [Primary Care Provider, Hospitalist] Time of Disposition: 12:04
[2025-11-08] MEDS: LIDOCAINE 5% PATCH 1 PATCH TRANSDERM (11:53)
== END 2025-11-08 12:17 | disposition home or self-care (01) ==
PROVIDERS: Emergency Provider Nurse Practitioner Family; PCP Internal Medicine
DX: S39.012A Strain of muscle, fascia and tendon of lower back, initial encounter (principal); K21.9 Gastro-esophageal reflux disease without esophagitis; K76.0 Fatty (change of) liver, not elsewhere classified; I10 Essential (primary) hypertension; E11.9 Type 2 diabetes mellitus without complications; Z79.4 Long term (current) use of insulin; Z79.84 Long term (current) use of oral hypoglycemic drugs; X58.XXXA Exposure to other specified factors, initial encounter
CPT/HCPCS: 72100; 99283; A9270